=== PATIENT | female | born 1970 | race African-American/Black ===

== ENCOUNTER 2016-12-18 07:45 | Emergency (ER) | payer OTHER | END 2016-12-18 09:18 | disposition home or self-care (01) | LOC: FER 07:45 | DX: M17.11 Unilateral primary osteoarthritis, right knee (principal); X58.XXXA Exposure to other specified factors, initial encounter; Y99.0 Civilian activity done for income or pay | CPT/HCPCS: 73564; 99283 ==

== ENCOUNTER 2021-03-08 07:42 | Emergency (ER) | payer OTHER ==
[~2021-03-08 07:42] MED LIST: FERROUS GLUCON324 M1 PO; K-DUR20 MEQ PO; KEFLEX500 MG PO; LASIX20 MG PO; LEVAQUIN500 MG PO; LODINE400 MG PO; MEDROL 4MG DOSEP4 MG PO; MOTRIN600 MG PO; NORCO 5-325 TA1 EACH PO; NORCO 5/3251 EACH PO; PERCOCET 5-3251 EACH PO; PROAIR HFA8.5 GM INH; TAMIFLU 75MG CA75 MG PO; TESSALON PERLE100 M1 PO; ZPAK PO
[2021-03-08] MEDS ORDERED: PREDNISONE 20MG20 MG PO (08:08)
== END 2021-03-08 08:17 | disposition home or self-care (01) ==
LOC: FER 07:42
DX: M26.622 Arthralgia of left temporomandibular joint (principal); I10 Essential (primary) hypertension
CPT/HCPCS: 99283

== ENCOUNTER 2021-04-30 12:59 | Emergency (ER) | payer OTHER ==
[~2021-04-30] VITALS: Ht 165.1 cm; Wt 68.0 kg
[~2021-04-30 12:59] MED LIST changes: +PREDNISONE 20MG20 MG PO
[2021-04-30 14:23] LABS: BILIRUBIN NEGATIVE (NEGATIVE); BLOOD NEGATIVE Ery/uL (NEGATIVE); CLARITY CLEAR (CLEAR); COLOR YELLOW (YELLOW); GLUCOSE (U) NORMAL (NORMAL); LEUKOCYTES NEGATIVE Leu/uL (NEGATIVE); NITRITE NEGATIVE (NEGATIVE); PROTEIN NEGATIVE (NEGATIVE); pH 6.5 (5.0-9.0)
[2021-04-30 14:23] LABS: BASOPHIL 0.2 % (0-2); EOSINOPHIL 0.2 % (0-5); HCT 36.3 % (37.0-47.0); HGB 11.6 g/dl (12.5-16.0); LYMPHOCYTE 10.8 % (15-48); MCH 25.4 pg (25.0-31.0); MCV 79.6 fL (78.0-100.0); MONOCYTE 7.9 % (0-12); MPV 10.9 fL (6.0-9.5); NEUTROPHIL 80.7 % (41-80); NRBC 0; PLT 166 K/uL (150-400); RBC 4.56 M/uL (4.20-5.40); RDW 13.6 % (11.5-14.0); WBC 5.2 K/uL (4.0-10.5)
[2021-04-30 14:45] LABS: ALBUMIN 3.3 g/dL (3.4-5.0); BILIRUBIN - TOTAL 0.3 mg/dL (0.2-1.0); BUN/CREAT RATIO (CALC) 12.5 RATIO; CREATININE 0.8 mg/dL (0.51-0.95); GLOBULIN (CALCULATION) 5.5 g/dL; POTASSIUM 4.3 mmol/L (3.5-5.1); TOTAL PROTEIN 8.8 g/dL (6.4-8.2)
[2021-04-30] MEDS ORDERED: NAPROXEN500 MG PO (16:17)
== END 2021-04-30 16:28 | disposition home or self-care (01) ==
LOC: FER 12:59
PROVIDERS: Nurse Practitioner Family
DX: R10.84 Generalized abdominal pain (principal); M54.50 Low back pain, unspecified; I10 Essential (primary) hypertension
CPT/HCPCS: 36415; 80053; 81003; 85025; J1885; J2405; J7030; Q9967

== ENCOUNTER 2021-09-05 08:11 | Emergency (ER) | payer OTHER ==
[~2021-09-05 08:11] MED LIST changes: +NAPROXEN500 MG PO
[2021-09-05] MEDS ORDERED: NORCO 5-325 TA1 EACH PO (09:43)
== END 2021-09-05 09:58 | disposition home or self-care (01) ==
LOC: FER 08:11
DX: M79.671 Pain in right foot (principal)
CPT/HCPCS: 73630

== ENCOUNTER 2021-11-16 07:23 | Emergency (ER) | payer OTHER ==
[2021-11-16] MEDS ORDERED: AZITHROMYCIN250 MG PO (08:06)
== END 2021-11-16 08:15 | disposition home or self-care (01) ==
LOC: FER 07:23
DX: J42 Unspecified chronic bronchitis (principal); I10 Essential (primary) hypertension
CPT/HCPCS: 71046